=== PATIENT | male | born 2000 | race Caucasian/White ===

== ENCOUNTER 2023-10-10 23:17 | Emergency (ER) | payer BC, SELFPAY ==
[2023-10-10 23:23] VITALS: BP 128/80
[2023-10-11 02:41] VITALS: BP 128/65
--- NOTE | 2023-10-11 03:29 | ED.GENMED ---
History of Present Illness
<KERI Buckley - Last Filed: 10/11/23 06:07>
General
Chief Complaint: Numbness
Source: patient
Exam Limitations: none
Time Seen by Provider: 10/11/23 03:15
Travel History
Have you had any contact with someone who has COVID-19?: No
Do you have any symptoms of coronavirus? Fever > 100 degrees, chills, cough, shortness of breath, sore throat, loss of taste or smell, muscle aches, or headache?: No
History of Present Illness
History of Present Illness:
This is a 23 yo male with PMH generalized anxiety and panic disorder presenting for R sided facial weakness x 3 days. The facial weakness had a sudden onset and has persisted for the last 3 days. He states he has not been able to close his right eye
without significant effort and his eye has been excessively dry as a result. He admits to associated mild R sided BARRERA. He denies weakness in the extremities, aphasia, hearing loss, vision changes, difficulty swallowing, and ataxia.
He notes that he started abilify for panic disorder the day of symptom onset.
Review of Systems
<KERI Buckley - Last Filed: 10/11/23 06:07>
Review of Systems
Allergies reviewed?: Yes
Constitutional: Reports no symptoms
EENT: Reports tearing
Respiratory: Reports no symptoms
Cardiac: Reports no symptoms
ABD/GI: Reports no symptoms
: Reports no symptoms
Musculoskeletal: Reports no symptoms
Skin: Reports no symptoms
Neurological: Reports headache, weakness and numbness
Phy Exam
<KERI Buckley - Last Filed: 10/11/23 06:07>
General Physical Exam
General Presentation: well appearing
General age: appears stated age
General Skin: warm and dry
General Habitus: normal
General Mental: alert
General Hydration: appears well hydrated
Neurological Exam
Neurological Exam: alert, oriented x3, speech normal and other (Normal facial symmetry at rest, closure of R eye only with significant effort, inability to raise R eyebrow and R corner of mouth)
Psychiatric Exam
Psychiatric Exam: normal mood/affect
Course
<ST MarcioPA - Last Filed: 10/11/23 06:07>
Orders/Labs/Results
Orders:
Orders
10/11/23 04:18
Bedside Glucose- Treatment ONCE
10/11/23 04:19
Lyme Progressive Urgent
10/11/23 04:29
Artificial Tears (Pf) [Refresh Eye Drops (Pf)] 1 drops OPHTH NOW STA
Vital Signs
Initial and Last Documented VS:
Initial Vital Signs
Temp Pulse Resp BP Pulse Ox
97.7 F 74 18 128/80 100
10/10/23 23:23 10/10/23 23:23 10/10/23 23:23 10/10/23 23:23 10/10/23 23:23
Last Documented Vital Signs
Temp Pulse Resp BP Pulse Ox
97.7 F 71 16 118/70 99
10/10/23 23:23 10/11/23 04:28 10/11/23 04:28 10/11/23 04:28 10/11/23 04:28
<Naveen Varela DO - Last Filed: 10/11/23 04:29>
Orders/Labs/Results
Orders:
Orders
10/11/23 04:18
Bedside Glucose- Treatment ONCE
10/11/23 04:19
Lyme Progressive Urgent
10/11/23 04:29
Artificial Tears (Pf) [Refresh Eye Drops (Pf)] 1 drops OPHTH NOW STA
Vital Signs
Initial and Last Documented VS:
Initial Vital Signs
Temp Pulse Resp BP Pulse Ox
97.7 F 74 18 128/80 100
10/10/23 23:23 10/10/23 23:23 10/10/23 23:23 10/10/23 23:23 10/10/23 23:23
Last Documented Vital Signs
Temp Pulse Resp BP Pulse Ox
97.7 F 71 16 118/70 99
10/10/23 23:23 10/11/23 04:28 10/11/23 04:28 10/11/23 04:28 10/11/23 04:28
<KERI Buckley - Last Filed: 10/11/23 06:07>
MDM/Problems Addressed
Differential Diagnosis Includes:
Valdez's Palsy
Lyme disease
CVA/TIA
MDM/Problems Addressed:
This patient described sudden onset R sided facial weakness which started 3 days ago and has persisted. He denies weakness in the extremities, aphasia, hearing loss, vision changes, difficulty swallowing, and ataxia. These negative ROS combined with
his unremarkable medical history and young age significantly lower our suspicion for a CVA/TIA. Additionally, his facial weakness includes the inability to wrinkle his forehead.
His symptoms align with House Brackman classification Grade III, thus will be treated with prednisone only.
His history is not suspicious for lyme disease, as he denies significant outdoor activity including hiking and camping.
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
<KERI Buckley - Last Filed: 10/11/23 06:07>
*Critical Care Note
Total Time (30-74mins, 75-104mins- exclusive of procedures): Not Applicable
ED Attending Note
<KERI Buckley - Last Filed: 10/11/23 06:07>
-
Portions of this chart may have been created with voice recognition software.� Occasional wrong word or��sound alike� substitutions may have occurred due to the inherent limitations of voice recognition software.
<Naveen Varela DO - Last Filed: 10/11/23 04:29>
ED Attending Note
Patient seen and examined by attending physician: Yes
I performed the substantive portion of visit, reviewed & personally made and approve the management plan that is documented in note by myself or NAHUM.: Yes
ED Attending Note:
23-year-old male who presents with 3 days of right-sided facial weakness. Patient states that the weakness involves the upper and lower regions of the face. He states that his forehead and eyelid as well as his mouth are involved. Patient denies
ear pain. Reports no ataxia. Denies fever, chills, stiff neck. Patient was seen in conjunction with the PA student. I have reviewed and agree with the history and treatment plan presented. On my independent physical exam, patient is awake,
alert, and oriented x3, minimal acute distress. Patient is unable to raise the right eyebrow. The right side of the forehead remains smooth when trying to wrinkle it. Patient cannot close the right eye completely. He is unable to raise the right
corner of his mouth. There is some drooping at the right corner of the mouth. Nasal labial fold is diminished.
Patient is being tested for Lyme disease.
Discharge Plan
Departure
Patient Disposition: Home (Routine Discharge)
Date of Disposition: 10/11/23
Time of Disposition: 04:24
Patient with high blood pressure during this ER visit?: Yes
Discharge Problem:
Valdez's palsy
Instructions: Valdez's Palsy (DC), BLOOD PRESSURE
Prescriptions:
New
prednisone 10 mg tablet
See Taper PO DAILY Qty: 35 0RF
Taper: Prednisone DC Starting at 50 mg daily
50 mg Daily for 5 Days and 0 Hour
40 mg Daily for 1 Day and 0 Hour
30 mg Daily for 1 Day and 0 Hour
20 mg Daily for 1 Day and 0 Hour
10 mg Daily for 1 Day and 0 Hour
Referrals:
Lowell Fisher MD [Active] -
Rita Hodge PA-C [Family Provider] -
Activity Restrictions/Additional Instructions:
It was a pleasure meeting you and taking part in your care. We hope for your continued healing and wellness.
Please read discharge instructions in their entirety. However, they are for general education and may not describe your exact diagnosis at discharge. Information on your ER visit and medical conditions were discussed with you along with appropriate
follow up information...
If indicated, please take your medications as instructed and indicated on discharge paperwork.
Please schedule a follow up appointment as directed. Call to schedule an appointment
Please return to the emergency department with ANY change in, persisting, or worsening of symptoms. If any of your symptoms do not improve, or persist, or become more severe within 6-12 hours, please return to the emergency department for further
care.
Please return to the emergency department if you develop a headache, neck pain/stiffness, fever greater than 100.4F, chest pain, shortness of breath, persistent nausea, vomiting, slurred speech, difficulty walking, numbness/tingling, weakness, signs
of infection or any other symptoms that are worrisome to you.
If you have any questions or concerns please do not hesitate to call the Hospital at or E-mail me directly at [email or web address]
Interventions
Interventions:
*Risk Screen - Suicide Last Done: 10/10/23 23:23
*General Assessment Last Done: 10/11/23 02:36
*Neglect/Abuse Screening Last Done: 10/10/23 23:23
ED- Fall Risk Assessment Last Done: 10/11/23 02:36
*ED COVID-19 Vaccine History Last Done: 10/11/23 02:36
*Nursing Disposition Last Done: 10/11/23 04:29
ED- Neurological Assessment Last Done: 10/11/23 02:36
Discharge Date and Time
Discharge Date/Time: 10/11/23 04:39
Print Language: [id number]
[2023-10-11 04:25] LABS: Glucose - Point of Care 94 mg/dl (70-99)
[2023-10-11 04:28] VITALS: BP 118/70
[2023-10-11] MEDS: REFRESH EYE DROPS (PF) 1 DROPS OPHTH (04:34)
[2023-10-11 16:26] LABS: Lyme Antibody Screen, EIA Negative (Negative)
== END 2023-10-11 04:39 | disposition home or self-care (01) ==
LOC: EMR 23:17
PROVIDERS: EMERGENCY PHYSICIAN Student in an Organized Health Care Education/Training Program; FAMILY PHYSICIAN Physician Assistant Medical
DX: G51.0 Bell's palsy (principal); R51.9 Headache, unspecified; R03.0 Elevated blood-pressure reading, without diagnosis of hypertension; F41.1 Generalized anxiety disorder; F41.0 Panic disorder [episodic paroxysmal anxiety]
CPT/HCPCS: 99283; 82962; 86618

== ENCOUNTER → 2023-10-13 14:41 | Outpatient (REF) | payer BC, SELFPAY | LOC: HWRAD 14:41 | PROVIDERS: ATTENDING PHYSICIAN Physician Assistant Medical | DX: G51.0 Bell's palsy (principal) | CPT/HCPCS: 70450 ==

== ENCOUNTER → 2024-06-29 12:26 | Outpatient (REF) | payer BC, SELFPAY | LOC: RAD 12:26 | PROVIDERS: ATTENDING PHYSICIAN Family Medicine | DX: R05.1 Acute cough (principal) | CPT/HCPCS: 71046 ==